=== PATIENT | male | born 1945 | race Caucasian/White ===

== ENCOUNTER 2017-07-11 15:42 | Inpatient (IN) | payer MEDICARE, BC ==
[~2017-07-11] VITALS: Ht 182.9 cm; Wt 79.8 kg
[~2017-07-11 15:42] MED LIST: ASPIRIN 81M81 MG/TA2 PO; CENTRUM SILVER1 CTB PO; CIPRO 250MG TA250 MG; COLACE 100100 MG/CAP; D3-55000 IU PO; FERROUS GLUCONA27 MG PO; NORCO 325 MG-51 TAB PO; VITAMIN C500 MG PO
[2017-07-11 16:27] LABS: BASO # 0.1 (0.0-0.2); BASO % 0.5 % (0.0-2.0); EOS % 0.1 % (0-4.0); GRAN % 81.2 % (42.2-75.2); HEMATOCRIT 43.4 % (42.0-52.0); HEMOGLOBIN 14.8 g/dl (13.5-18.0); LYMPH # 2.3 (1.2-3.4); LYMPH % 11.1 % (20.0-51.0); MEAN CELL VOLUME 93 fl (80.0-100.0); MEAN CORPUSCULAR HEMOGLOBIN 32 pg (27.0-31.0); MEAN CORPUSCULAR HGB CONC 34 g/dl (33.0-37.0); MEAN PLATELET VOLUME 9.9 fl (7.4-10.4); MONO # 1.4 (0.1-0.6); MONO % 6.5 % (1.7-9.3); PLATELET COUNT 348 K/mm3 (130-400); RED BLOOD COUNT 4.67 M/mm3 (4.20-5.60); REDCELL DISTRIBUTION WIDTH-CV 12.4 % (11.5-14.5)
[2017-07-11 16:46] LABS: COLLECTION METHOD CLEAN CATCH
[2017-07-11 16:48] LABS: ALBUMIN 4.4 gm/dL (3.5-5.0); BILIRUBIN,TOTAL 0.5 mg/dL (0.0-1.0); C-REACTIVE PROTEIN 3.8 mg/dL (0.0-0.9); CALCIUM 9.5 mg/dL (8.4-10.2); CREATININE, serum 0.73 mg/dL (0.66-1.25); TOTAL PROTEIN 8.3 gm/dL (6.4-8.2)
[2017-07-11 16:52] LABS: MUCOUS Present /lpf; PH 6 (5-8); SQUAMOUS EPITHELIAL None Seen /hpf; URINE APPEARANCE Clear; URINE BACTERIA None Seen /hpf; URINE BILIRUBIN Negative (NEGATIVE); URINE BLOOD Negative (NEGATIVE); URINE COLOR Yellow; URINE GLUCOSE Negative (NEGATIVE); URINE KETONE 1+ (NEGATIVE); URINE LEUKOCYTE ESTERASE Negative (NEGATIVE); URINE NITRATE Negative (NEGATIVE); URINE PROTEIN(semi-quant) 2+ (NEGATIVE); URINE UROBILINOGEN Negative (NEGATIVE)
[2017-07-11 16:59] LABS: TROPONIN-I 0.025 ng/mL (0.000-0.034)
[2017-07-11 18:32] VITALS: BP 179/79; PULSE 87; TEMP 97.9
[2017-07-12] VITALS (11 sets, daily range): BP systolic 131–155; BP diastolic 59–84; PULSE 71–95; TEMP 98–99.7
[2017-07-12 01:29] LABS: COLLECTION METHOD CLEAN CATCH
[2017-07-12 01:39] LABS: PH 7 (5-8); SQUAMOUS EPITHELIAL None Seen /hpf; URINE APPEARANCE Clear; URINE BACTERIA None Seen /hpf; URINE BILIRUBIN Negative (NEGATIVE); URINE BLOOD Negative (NEGATIVE); URINE COLOR Yellow; URINE GLUCOSE Negative (NEGATIVE); URINE KETONE 1+ (NEGATIVE); URINE LEUKOCYTE ESTERASE Negative (NEGATIVE); URINE NITRATE Negative (NEGATIVE); URINE PROTEIN(semi-quant) Negative (NEGATIVE); URINE UROBILINOGEN Negative (NEGATIVE)
[2017-07-12 06:34] LABS: BASO # 0.1 (0.0-0.2); BASO % 0.3 % (0.0-2.0); GRAN # 18.6 (1.4-6.5); GRAN % 82.3 % (42.2-75.2); HEMATOCRIT 42.4 % (42.0-52.0); LYMPH % 8.9 % (20.0-51.0); MEAN CELL VOLUME 95 fl (80.0-100.0); MEAN CORPUSCULAR HEMOGLOBIN 31 pg (27.0-31.0); MEAN CORPUSCULAR HGB CONC 33 g/dl (33.0-37.0); MEAN PLATELET VOLUME 10.5 fl (7.4-10.4); MONO # 1.7 (0.1-0.6); MONO % 7.7 % (1.7-9.3); PLATELET COUNT 309 K/mm3 (130-400); RED BLOOD COUNT 4.47 M/mm3 (4.20-5.60); REDCELL DISTRIBUTION WIDTH-CV 12.3 % (11.5-14.5)
[2017-07-12 06:44] LABS: CALCIUM 8.9 mg/dL (8.4-10.2); CREATININE, serum 0.67 mg/dL (0.66-1.25); POTASSIUM 3.9 mmol/L (3.4-5.0)
[2017-07-13] VITALS (13 sets, daily range): BP systolic 124–142; BP diastolic 52–81; PULSE 88–110; TEMP 98.5–100.5
[2017-07-13 06:05] LABS: HEMOGLOBIN 12.6 g/dl (13.5-18.0); MEAN CELL VOLUME 93 fl (80.0-100.0); MEAN CORPUSCULAR HEMOGLOBIN 32 pg (27.0-31.0); MEAN CORPUSCULAR HGB CONC 34 g/dl (33.0-37.0); PLATELET COUNT 281 K/mm3 (130-400); RED BLOOD COUNT 3.96 M/mm3 (4.20-5.60); REDCELL DISTRIBUTION WIDTH-CV 12.6 % (11.5-14.5)
[2017-07-13 06:18] LABS: HEMATOCRIT 36.7 % (42.0-52.0)
[2017-07-13 06:22] LABS: CALCIUM 8.2 mg/dL (8.4-10.2); CREATININE, serum 0.71 mg/dL (0.66-1.25); POTASSIUM 3.4 mmol/L (3.4-5.0)
[2017-07-13 06:38] LABS: TROPONIN-I 0.059 ng/mL (0.000-0.034)
[2017-07-13 06:49] LABS: BAND 8 % (0-10); LYMPHOCYTE 10 % (20.0-51.0); METAMYELOCYTE 1 % (0-0); NEUTROPHILS 76 % (42.0-75.2); PLATELET ESTIMATE NORMAL (NORMAL)
[2017-07-14] VITALS (7 sets, daily range): BP systolic 103–135; BP diastolic 57–78; PULSE 80–106; TEMP 97.8–99.6
[2017-07-14 12:11] LABS: MAGNESIUM 1.7 mg/dL (1.6-2.3)
[2017-07-14 12:41] LABS: TSH w REFLEX 1.08 uIU/mL (0.465-4.680)
[2017-07-15] VITALS (10 sets, daily range): BP systolic 78–152; BP diastolic 36–70; PULSE 68–96; TEMP 98–99.5
[2017-07-15 06:40] LABS: MEAN CELL VOLUME 94 fl (80.0-100.0); MEAN CORPUSCULAR HGB CONC 34 g/dl (33.0-37.0); MEAN PLATELET VOLUME 10.4 fl (7.4-10.4); PLATELET COUNT 303 K/mm3 (130-400); RED BLOOD COUNT 3.62 M/mm3 (4.20-5.60); REDCELL DISTRIBUTION WIDTH-CV 12.8 % (11.5-14.5)
[2017-07-15 06:49] LABS: HEMATOCRIT 34.1 % (42.0-52.0); HEMOGLOBIN 11.5 g/dl (13.5-18.0); MEAN CORPUSCULAR HEMOGLOBIN 32 pg (27.0-31.0)
[2017-07-15 07:08] LABS: CALCIUM 7.3 mg/dL (8.4-10.2); CHOLESTEROL RISK RATIO 7.2; CREATININE, serum 0.89 mg/dL (0.66-1.25)
[2017-07-15 07:23] LABS: POTASSIUM 2.6 mmol/L (3.4-5.0)
[2017-07-15 07:41] LABS: BAND 14 % (0-10); EOSINOPHIL 2 % (0-4); LYMPHOCYTE 10 % (20.0-51.0); NEUTROPHILS 69 % (42.0-75.2); PLATELET ESTIMATE NORMAL (NORMAL)
[2017-07-16 04:36] VITALS: BP 124/62; PULSE 76; TEMP 98.3
[2017-07-16 08:49] VITALS: BP 108/37; BP 116/55; PULSE 119; PULSE 140; TEMP 98
[2017-07-16 12:23] VITALS: BP 113/66; PULSE 67; TEMP 98.5
[2017-07-16 16:40] VITALS: BP 118/68; PULSE 75; TEMP 97.8
[2017-07-16 20:12] VITALS: BP 125/70; PULSE 86; TEMP 98.6
[2017-07-16 23:21] VITALS: BP 101/55; PULSE 75; TEMP 98.6
[2017-07-17 03:23] VITALS: BP 110/56; PULSE 78; TEMP 98.6
[2017-07-17 06:43] LABS: MEAN CELL VOLUME 96 fl (80.0-100.0); MEAN CORPUSCULAR HGB CONC 32 g/dl (33.0-37.0); MEAN PLATELET VOLUME 11.8 fl (7.4-10.4); PLATELET COUNT 304 K/mm3 (130-400); REDCELL DISTRIBUTION WIDTH-CV 12.9 % (11.5-14.5)
[2017-07-17 06:56] LABS: HEMATOCRIT 31.8 % (42.0-52.0); HEMOGLOBIN 10.3 g/dl (13.5-18.0); MEAN CORPUSCULAR HEMOGLOBIN 31 pg (27.0-31.0)
[2017-07-17 06:58] LABS: CALCIUM 7.9 mg/dL (8.4-10.2); CREATININE, serum 0.78 mg/dL (0.66-1.25); MAGNESIUM 1.9 mg/dL (1.6-2.3); PHOSPHOROUS 2.6 mg/dL (2.5-4.5); POTASSIUM 3.6 mmol/L (3.4-5.0)
[2017-07-17 07:45] VITALS: BP 129/69; PULSE 80; TEMP 99
[2017-07-17 08:24] LABS: BAND 10 % (0-10); EOSINOPHIL 1 % (0-4); LYMPHOCYTE 27 % (20.0-51.0); NEUTROPHILS 60 % (42.0-75.2); PLATELET ESTIMATE NORMAL (NORMAL)
[2017-07-17] MEDS ORDERED: BETAPACE 80MG80 MG PO (09:47)
[2017-07-17] MEDS ORDERED: PROBIOTIC ACID1 EAC3 PO (09:48)
[2017-07-17] MEDS ORDERED: PROTONIX 40MG T40 MG PO (09:48)
[2017-07-17] MEDS ORDERED: Florastor PO (09:49)
[2017-07-17] MEDS ORDERED: ELIQUIS 5MG PO (09:50)
[2017-07-17] MEDS ORDERED: FLORASTOR250 MG PO (19:32)
== END 2017-07-17 12:11 | disposition home or self-care (01) | DRG 871 ==
LOC: COL.ER 15:42 → SURG 17:48 → COL.ER 17:48 → MEDICAL 07-13 10:40 → SURG 07-13 10:40 → MEDICAL 07-13 15:32
PROVIDERS: Emergency Medicine; Internal Medicine; Internal Medicine Gastroenterology; Nurse Practitioner Family; Physician Assistant
PROC: 0DJ08ZZ Inspection of Upper Intestinal Tract, Via Natural or Artificial Opening Endoscopic (ICD-10-PCS; principal; 2017-07-12 12:30)
DX: A41.9 Sepsis, unspecified organism (principal); K85.90 Acute pancreatitis without necrosis or infection, unspecified; I21.A1 Myocardial infarction type 2; K29.80 Duodenitis without bleeding; R65.20 Severe sepsis without septic shock; Z85.46 Personal history of malignant neoplasm of prostate; F17.210 Nicotine dependence, cigarettes, uncomplicated; E87.6 Hypokalemia; I10 Essential (primary) hypertension; I48.91 Unspecified atrial fibrillation; D64.9 Anemia, unspecified
CPT/HCPCS: 99231-AI; 99232-AI; 99233-AI; 99239; A9502; C9113; G0378; J1650; J1940; J2250; J2270; J2405; J2543; J2704; J2785; J3475; J3480; J7030; Q9967

== ENCOUNTER 2017-07-17 19:10 | Inpatient (IN) | payer MEDICARE, BC ==
[~2017-07-17] VITALS: Ht 182.9 cm; Wt 81.6 kg
[2017-07-17] VITALS (112 sets, daily range): BP systolic 107; BP diastolic 80; PULSE 80; TEMP 98; O2SAT 93–100
[~2017-07-17 19:10] MED LIST changes: +BETAPACE 80MG80 MG PO; +ELIQUIS 5MG PO; +Florastor PO; +PROBIOTIC ACID1 EAC3 PO; +PROTONIX 40MG T40 MG PO
[2017-07-17 19:21] LABS: BASO # 0.2 (0.0-0.2); BASO % 0.7 % (0.0-2.0); EOS # 0.5 (0.0-0.7); EOS % 1.8 % (0-4.0); GRAN # 15.8 (1.4-6.5); GRAN % 62.6 % (42.2-75.2); HEMATOCRIT 39.2 % (42.0-52.0); LYMPH # 5.6 (1.2-3.4); MEAN CELL VOLUME 96 fl (80.0-100.0); MEAN CORPUSCULAR HGB CONC 33 g/dl (33.0-37.0); MEAN PLATELET VOLUME 10.3 fl (7.4-10.4); MONO # 2.4 (0.1-0.6); MONO % 9.5 % (1.7-9.3); RED BLOOD COUNT 4.07 M/mm3 (4.20-5.60); REDCELL DISTRIBUTION WIDTH-CV 12.8 % (11.5-14.5)
[2017-07-17 19:25] LABS: ARTERIAL BLD GAS O2 SATURATION 98.5 % (92-100); ARTERIAL BLD GAS TCO2 CT 26.1; ARTERIAL BLOOD GAS HCO3 24.5 meq/L (22-26); ARTERIAL BLOOD GAS PO2 184.2 mmHg (80-100); ARTERIAL BLOOD GAS pH 7.27 (7.35-7.45)
[2017-07-17 19:26] LABS: HEMOGLOBIN 12.8 g/dl (13.5-18.0); MEAN CORPUSCULAR HEMOGLOBIN 31 pg (27.0-31.0); PLATELET COUNT 467 K/mm3 (130-400)
[2017-07-17 19:31] LABS: ALBUMIN 3.7 gm/dL (3.5-5.0); BILIRUBIN,TOTAL 0.7 mg/dL (0.0-1.0); CALCIUM 8.8 mg/dL (8.4-10.2); CREATININE, serum 0.87 mg/dL (0.66-1.25); INR 1.1 (0.8-3.0); POTASSIUM 4.8 mmol/L (3.4-5.0); PROTHROMBIN TIME 13.2 SECONDS (9.7-12.8); TOTAL PROTEIN 7.6 gm/dL (6.4-8.2)
[2017-07-17] MEDS ORDERED: FLORASTOR250 MG PO (19:32)
[2017-07-17 19:33] LABS: PARTIAL THROMBOPLASTIN TIME 36.1 SECONDS (26.0-37.0)
[2017-07-17 19:42] LABS: TROPONIN-I 0.092 ng/mL (0.000-0.034)
[2017-07-17 20:56] LABS: ARTERIAL BLD GAS O2 SATURATION 96.5 % (92-100); ARTERIAL BLD GAS TCO2 CT 23.9; ARTERIAL BLOOD GAS HCO3 22.7 meq/L (22-26); ARTERIAL BLOOD GAS PCO2 38.6 mmHg (35-45); ARTERIAL BLOOD GAS pH 7.39 (7.35-7.45)
[2017-07-18] VITALS (532 sets, daily range): BP systolic 104–120; BP diastolic 58–79; PULSE 58–83; TEMP 97.2–98.7; O2SAT 82–100
[2017-07-18 02:52] LABS: PHOSPHOROUS 3.7 mg/dL (2.5-4.5)
[2017-07-18 03:21] LABS: THYROID STIMULATING HORMONE 1.34 uIU/mL (0.465-4.680)
[2017-07-18 06:01] LABS: MEAN CELL VOLUME 96 fl (80.0-100.0); MEAN CORPUSCULAR HGB CONC 33 g/dl (33.0-37.0); MEAN PLATELET VOLUME 10.1 fl (7.4-10.4); RED BLOOD COUNT 3.31 M/mm3 (4.20-5.60); REDCELL DISTRIBUTION WIDTH-CV 12.9 % (11.5-14.5)
[2017-07-18 06:18] LABS: HEMATOCRIT 31.8 % (42.0-52.0); HEMOGLOBIN 10.5 g/dl (13.5-18.0); MEAN CORPUSCULAR HEMOGLOBIN 32 pg (27.0-31.0); PLATELET COUNT 360 K/mm3 (130-400)
[2017-07-18 06:24] LABS: INR 1.6 (0.8-3.0); PROTHROMBIN TIME 18.2 SECONDS (9.7-12.8)
[2017-07-18 06:25] LABS: ALBUMIN 3.1 gm/dL (3.5-5.0); BILIRUBIN,TOTAL 0.4 mg/dL (0.0-1.0); CALCIUM 8.4 mg/dL (8.4-10.2); CREATININE, serum 0.79 mg/dL (0.66-1.25); POTASSIUM 4.2 mmol/L (3.4-5.0); TOTAL PROTEIN 6.4 gm/dL (6.4-8.2)
[2017-07-18 07:37] LABS: BAND 10 % (0-10); LYMPHOCYTE 20 % (20.0-51.0); METAMYELOCYTE 1 % (0-0); NEUTROPHILS 67 % (42.0-75.2); PLATELET ESTIMATE NORMAL (NORMAL)
[2017-07-18 15:48] LABS: COLLECTION METHOD CLEAN CATCH
[2017-07-18 15:58] LABS: MUCOUS Present /lpf; PH 5 (5-8); SQUAMOUS EPITHELIAL None Seen /hpf; URINE APPEARANCE Hazy; URINE BACTERIA None Seen /hpf; URINE BILIRUBIN Negative (NEGATIVE); URINE BLOOD Negative (NEGATIVE); URINE COLOR Yellow; URINE GLUCOSE Negative (NEGATIVE); URINE KETONE Negative (NEGATIVE); URINE LEUKOCYTE ESTERASE Negative (NEGATIVE); URINE NITRATE Negative (NEGATIVE); URINE PROTEIN(semi-quant) Negative (NEGATIVE); URINE RBC 0-2 /hpf; URINE UROBILINOGEN Negative (NEGATIVE)
[2017-07-19] VITALS (7 sets, daily range): BP systolic 95–129; BP diastolic 43–72; PULSE 57–83; TEMP 97.8–98.5
[2017-07-19 06:17] LABS: MEAN CELL VOLUME 97 fl (80.0-100.0); MEAN CORPUSCULAR HGB CONC 33 g/dl (33.0-37.0); MEAN PLATELET VOLUME 10.4 fl (7.4-10.4); PLATELET COUNT 450 K/mm3 (130-400); RED BLOOD COUNT 3.33 M/mm3 (4.20-5.60)
[2017-07-19 06:26] LABS: HEMATOCRIT 32.2 % (42.0-52.0); HEMOGLOBIN 10.5 g/dl (13.5-18.0); MEAN CORPUSCULAR HEMOGLOBIN 32 pg (27.0-31.0)
[2017-07-19 08:04] LABS: BAND 2 % (0-10); EOSINOPHIL 3 % (0-4); LYMPHOCYTE 19 % (20.0-51.0); MYELOCYTE 1 % (0-0); NEUTROPHILS 66 % (42.0-75.2); PLATELET ESTIMATE INCREASED (NORMAL)
[2017-07-20 00:41] VITALS: BP 106/59; PULSE 69; TEMP 98.5
[2017-07-20 03:55] VITALS: BP 129/66; PULSE 68; TEMP 97.8
[2017-07-20 06:57] LABS: MEAN CELL VOLUME 96 fl (80.0-100.0); MEAN CORPUSCULAR HGB CONC 33 g/dl (33.0-37.0); MEAN PLATELET VOLUME 10.5 fl (7.4-10.4); PLATELET COUNT 497 K/mm3 (130-400); RED BLOOD COUNT 3.27 M/mm3 (4.20-5.60); REDCELL DISTRIBUTION WIDTH-CV 12.9 % (11.5-14.5)
[2017-07-20 06:58] LABS: HEMATOCRIT 31.4 % (42.0-52.0); HEMOGLOBIN 10.3 g/dl (13.5-18.0); MEAN CORPUSCULAR HEMOGLOBIN 31 pg (27.0-31.0)
[2017-07-20 07:12] LABS: CALCIUM 8.1 mg/dL (8.4-10.2); CREATININE, serum 0.81 mg/dL (0.66-1.25); MAGNESIUM 1.8 mg/dL (1.6-2.3); POTASSIUM 3.1 mmol/L (3.4-5.0)
[2017-07-20 07:28] LABS: BAND 1 % (0-10); EOSINOPHIL 6 % (0-4); LYMPHOCYTE 21 % (20.0-51.0); METAMYELOCYTE 1 % (0-0); NEUTROPHILS 59 % (42.0-75.2); PLATELET ESTIMATE INCREASED (NORMAL); POLYCHROMASIA 1+
[2017-07-20 07:29] LABS: STOMATOCYTE 1+
[2017-07-20 08:00] VITALS: BP 119/59; PULSE 63; TEMP 97.4
[2017-07-20] MEDS ORDERED: NICODERM C21 MG/PATC TD (08:27)
[2017-07-20] MEDS ORDERED: LASIX 40MG TABL40 MG PO (10:10)
[2017-07-20] MEDS ORDERED: K-TAB20 PO (10:11)
[2017-07-20 12:25] VITALS: BP 123/62; PULSE 61
== END 2017-07-20 12:41 | disposition home or self-care (01) | DRG 189 ==
LOC: COL.ER 19:10 → ICU 20:00 → MEDICAL 20:00
PROVIDERS: Emergency Medicine; Nurse Practitioner Family
DX: J96.01 Acute respiratory failure with hypoxia (principal); J81.0 Acute pulmonary edema; I21.A1 Myocardial infarction type 2; E87.2 Acidosis; Z66 Do not resuscitate; J96.02 Acute respiratory failure with hypercapnia; I10 Essential (primary) hypertension; Z85.46 Personal history of malignant neoplasm of prostate; I48.91 Unspecified atrial fibrillation; F17.210 Nicotine dependence, cigarettes, uncomplicated; E87.6 Hypokalemia; D64.9 Anemia, unspecified
CPT/HCPCS: 99223-AI; 99232-AI; 99239; J1940